=== PATIENT | female | born 1970 | race Caucasian/White ===

== ENCOUNTER 2021-01-12 18:12 | Inpatient (IN) | payer OTHER ==
[2021-01-12 20:23] LABS: BASO % 0.8 % (0-2.0); EOS % 1.9 % (0-4.5); HEMATOCRIT 31.3 % (32.4-45.2); HEMOGLOBIN 10.5 GM/dL (10.7-15.3); LYMPH % 36.4 % (8-40); MCH 28.3 pg (25.7-33.7); MCHC 33.7 g/dl (32.0-36.0); MEAN PLT VOLUME 7.5 fl (7.5-11.1); MONO % 8.7 % (3.8-10.2); NEUT % 52.2 % (42.8-82.8); PLATELET COUNT 349 10^3/uL (134-434); RBC 3.73 M/mm3 (3.60-5.2); WHITE BLOOD COUNT 6.2 K/mm3 (4.0-10.0)
[2021-01-12 20:31] LABS: INR 1.02 (0.83-1.09); PROTHROMBIN TIME (PATIENT) 12.3 SEC (9.7-13.0)
[2021-01-12 20:33] LABS: ACTIVATED PTT 23.9 SECONDS (25.2-36.5)
[2021-01-12 20:44] LABS: CALCIUM 9.1 mg/dL (8.5-10.1)
[2021-01-12 20:45] LABS: ALBUMIN 3.9 g/dl (3.4-5.0); BLOOD UREA NITROGEN 12.4 mg/dL (7-18)
[2021-01-12 20:48] LABS: CREATININE 0.6 mg/dL (0.55-1.3)
[2021-01-12 20:49] LABS: BILIRUBIN,TOTAL 0.3 mg/dL (0.2-1); TOT PROT 7.4 g/dl (6.4-8.2)
[2021-01-12] MEDS ORDERED: ENOXAPARIN NA (PORCINE) 40 MG/0.4 ML DISP.SYRIN SQ ONE (22:10)
[2021-01-12] MEDS ORDERED: BACITRACIN 0.9 GM PACKET TP ONE (22:58)
[2021-01-12] MEDS ORDERED: BACITRACIN 15 GM TUBE TOPICAL OINTMENT ONE (23:34)
[2021-01-13] MEDS ORDERED: ACETAMINOPHEN 325 MG TABLET (FP) PO PRN (00:56)
[2021-01-13] MEDS ORDERED: GABAPENTIN 100 MG CAPSULE ONE (02:10)
[2021-01-13] MEDS: GABAPENTIN 300 MG CAPSULE PO SCH ×3 (02:13→22:38)
[2021-01-13 08:32] LABS: EOS % 1.8 % (0-4.5); HEMATOCRIT 31.9 % (32.4-45.2); HEMOGLOBIN 10.3 GM/dL (10.7-15.3); LYMPH % 37.7 % (8-40); MCH 27.5 pg (25.7-33.7); MCHC 32.5 g/dl (32.0-36.0); MEAN CELL VOLUME 84.7 fl (80-96); MEAN PLT VOLUME 7.3 fl (7.5-11.1); NEUT % 50.5 % (42.8-82.8); PLATELET COUNT 322 10^3/uL (134-434); RBC 3.76 M/mm3 (3.60-5.2); RDW 13.9 % (11.6-15.6); WHITE BLOOD COUNT 4.9 K/mm3 (4.0-10.0)
[2021-01-13 08:47] LABS: RETICULOCYTES 1.73 % (0.5-1.5)
[2021-01-13 08:52] LABS: BLOOD UREA NITROGEN 9.5 mg/dL (7-18); CALCIUM 8.8 mg/dL (8.5-10.1); MAGNESIUM 2.1 mg/dL (1.8-2.4)
[2021-01-13 08:56] LABS: CREATININE 0.5 mg/dL (0.55-1.3)
[2021-01-13] MEDS ORDERED: APIXABAN 5 MG TABLET PO SCH (10:00)
[2021-01-13] MEDS: traMADol HCL 50 MG TABLET PO PRN (16:54)
[2021-01-13] MEDS ORDERED: WARFARIN NA 5 MG TABLET PO ONE ×2 (18:00)
[2021-01-13] MEDS ORDERED: WARFARIN NA 5 MG TABLET PO SCH (18:00)
[2021-01-13] MEDS: WARFARIN PROTOCOL PO SCH (18:45)
[2021-01-13] MEDS: ENOXAPARIN NA (PORCINE) 60 MG/0.6 ML DISP.SYRIN SQ SCH (22:38)
[2021-01-14 08:31] LABS: HEMATOCRIT 34.3 % (32.4-45.2); HEMOGLOBIN 11.3 GM/dL (10.7-15.3); MCH 27.9 pg (25.7-33.7); MEAN CELL VOLUME 84.6 fl (80-96); MEAN PLT VOLUME 7.1 fl (7.5-11.1); PLATELET COUNT 319 10^3/uL (134-434); RBC 4.05 M/mm3 (3.60-5.2); WHITE BLOOD COUNT 4.8 K/mm3 (4.0-10.0)
[2021-01-14 08:35] LABS: INR 1.15 (0.83-1.09); PROTHROMBIN TIME (PATIENT) 13.9 SEC (9.7-13.0)
[2021-01-14 08:57] LABS: CALCIUM 9.1 mg/dL (8.5-10.1)
[2021-01-14 08:58] LABS: BLOOD UREA NITROGEN 16.9 mg/dL (7-18); MAGNESIUM 2.1 mg/dL (1.8-2.4)
[2021-01-14 09:01] LABS: CREATININE 0.6 mg/dL (0.55-1.3); PHOSPHOROUS 4.5 mg/dL (2.5-4.9)
[2021-01-14] MEDS: GABAPENTIN 300 MG CAPSULE PO SCH ×2 (09:12→21:13)
[2021-01-14] MEDS: traMADol HCL 50 MG TABLET PO PRN ×2 (09:12→20:00)
[2021-01-14] MEDS: ENOXAPARIN NA (PORCINE) 60 MG/0.6 ML DISP.SYRIN SQ SCH ×2 (09:13→21:13)
[2021-01-14 11:28] VITALS: BMI 17.9
[2021-01-14] MEDS ORDERED: PT OWN MED DRAWER 7, Y5N ONE ×2 (17:35→19:29)
[2021-01-14] MEDS ORDERED: WARFARIN NA 7.5 MG TABLET PO SCH ×2 (18:00→19:45)
[2021-01-15 08:41] LABS: HEMATOCRIT 31.8 % (32.4-45.2); HEMOGLOBIN 10.3 GM/dL (10.7-15.3); MCH 27.3 pg (25.7-33.7); MCHC 32.3 g/dl (32.0-36.0); MEAN CELL VOLUME 84.6 fl (80-96); MEAN PLT VOLUME 7.9 fl (7.5-11.1); PLATELET COUNT 265 10^3/uL (134-434); RBC 3.75 M/mm3 (3.60-5.2); RDW 13.7 % (11.6-15.6)
[2021-01-15 08:44] LABS: INR 1.41 (0.83-1.09); PROTHROMBIN TIME (PATIENT) 17.2 SEC (9.7-13.0)
[2021-01-15 09:03] LABS: BLOOD UREA NITROGEN 14.7 mg/dL (7-18); CALCIUM 8.7 mg/dL (8.5-10.1)
[2021-01-15 09:04] LABS: MAGNESIUM 2.1 mg/dL (1.8-2.4)
[2021-01-15 09:07] LABS: CREATININE 0.5 mg/dL (0.55-1.3)
[2021-01-15] MEDS: MULTIVITAMINS THER W-MINERALS COMBO TABLET (FP) PO SCH (09:11)
[2021-01-15] MEDS: GABAPENTIN 300 MG CAPSULE PO SCH ×2 (09:12→22:17)
[2021-01-15] MEDS: ENOXAPARIN NA (PORCINE) 60 MG/0.6 ML DISP.SYRIN SQ SCH ×2 (09:12→22:19)
[2021-01-15] MEDS: traMADol HCL 50 MG TABLET PO PRN (13:44)
[2021-01-15] MEDS ORDERED: WARFARIN NA 7.5 MG TABLET PO SCH (18:00)
[2021-01-15] MEDS ORDERED: WARFARIN NA 7.5 MG TABLET PO ONE (18:00)
[2021-01-16 09:07] LABS: HEMATOCRIT 31.2 % (32.4-45.2); HEMOGLOBIN 10.4 GM/dL (10.7-15.3); MCH 27.9 pg (25.7-33.7); MCHC 33.1 g/dl (32.0-36.0); MEAN CELL VOLUME 84.1 fl (80-96); MEAN PLT VOLUME 7.5 fl (7.5-11.1); PLATELET COUNT 259 10^3/uL (134-434); RBC 3.71 M/mm3 (3.60-5.2); WHITE BLOOD COUNT 4.8 K/mm3 (4.0-10.0)
[2021-01-16 09:20] LABS: INR 2.77 (0.83-1.09); PROTHROMBIN TIME (PATIENT) 33.1 SEC (9.7-13.0)
[2021-01-16 09:24] LABS: BLOOD UREA NITROGEN 12.4 mg/dL (7-18)
[2021-01-16 09:28] LABS: CREATININE 0.6 mg/dL (0.55-1.3); PHOSPHOROUS 3.9 mg/dL (2.5-4.9)
[2021-01-16] MEDS: GABAPENTIN 300 MG CAPSULE PO SCH ×2 (10:31→21:35)
[2021-01-16] MEDS: MULTIVITAMINS THER W-MINERALS COMBO TABLET (FP) PO SCH (10:31)
[2021-01-16] MEDS: ENOXAPARIN NA (PORCINE) 60 MG/0.6 ML DISP.SYRIN SQ SCH ×2 (10:31→21:35)
[2021-01-16] MEDS ORDERED: WARFARIN NA 5 MG TABLET PO SCH (19:00)
[2021-01-16] MEDS: WARFARIN PROTOCOL PO SCH (21:42)
[2021-01-17] MEDS: MULTIVITAMINS THER W-MINERALS COMBO TABLET (FP) PO SCH (09:46)
[2021-01-17] MEDS: GABAPENTIN 300 MG CAPSULE PO SCH (09:46)
[2021-01-17 09:50] VITALS: BP 94/72; PULSE 93; TEMP 98.5
[2021-01-17] MEDS: ENOXAPARIN NA (PORCINE) 60 MG/0.6 ML DISP.SYRIN SQ SCH (11:21)
== END 2021-01-17 14:32 | disposition home or self-care (01) | DRG 206 ==
LOC: JER 18:12 → JERBED 22:11 → J6S 01-13 05:08
PROVIDERS: ADMIT Hospitalist; ATTEND Internal Medicine
DX: T81.72XA Complication of vein following a procedure, not elsewhere classified, initial encounter (principal); I82.442 Acute embolism and thrombosis of left tibial vein; D64.0 Hereditary sideroblastic anemia; R20.2 Paresthesia of skin; Y83.9 Surgical procedure, unspecified as the cause of abnormal reaction of the patient, or of later complication, without mention of misadventure at the time of the procedure
CPT/HCPCS: 36415; 73560-TC-LT-FY; 73590-TC-LT-FY; 73610-TC-LT-FY; 73630-TC-LT; 80048; 80053; 82607; 82728; 82746; 83010; 83540; 83550; 83615; 83735; 84100; 85025; 85027; 85045; 85610; 85730; 86850; 86900; 86901; 93005; 93010; 93971-TC; 97116-GP; 97161-GP; 99285-25; C9803; U0003; U0005

== ENCOUNTER 2021-02-23 12:45 | Emergency (ER) | payer OTHER ==
[2021-02-23 13:06] VITALS: BP 109/74; PULSE 81; TEMP 98; BMI 21.2
== END 2021-02-23 16:30 | disposition home or self-care (01) ==
LOC: JER 12:45
DX: S91.002A Unspecified open wound, left ankle, initial encounter (principal); Y99.9 Unspecified external cause status
CPT/HCPCS: 73590-TC-LT-FY; 73610-TC-LT-FY; 99284-25